=== PATIENT | male | born 1975 | race Two or more races ===

== ENCOUNTER → 2019-05-28 | Outpatient (CLI) | payer OTHER | LOC: CARD 11:12 | PROVIDERS: ATTEND Nurse Practitioner Family | DX: Z53.9 Procedure and treatment not carried out, unspecified reason (principal); R00.0 Tachycardia, unspecified; R00.2 Palpitations | CPT/HCPCS: 93225; 93226; 93306 ==

== ENCOUNTER → 2022-09-21 | Outpatient (CLI) | payer OTHER ==
--- NOTE | 2022-09-21 13:59 | Diagnostic Imaging Report ---
PROCEDURE: MR imaging cervical spine without contrast. TECHNIQUE: Multiplanar, multisequence MR imaging of the cervical spine was performed without contrast. INDICATION: Neck pain. COMPARISON: None. FINDINGS: Normal alignment. Vertebral body heights are preserved. No focal abnormal bone marrow signal. No abnormal signal in the cervical spinal cord. Visualized paravertebral soft tissues are unremarkable. C2-C3: No spinal canal or neural foraminal narrowing. C3-C4: Uncovertebral and facet arthropathy result in severe right and moderate left neural foraminal narrowing. C4-C5: Uncovertebral and facet arthropathy result in moderate bilateral neural foraminal narrowing. No spinal canal narrowing. C5-C6: Uncovertebral and facet arthropathy result in severe right and moderate left neural foraminal narrowing. No spinal canal narrowing. C6-C7: Left paracentral disc protrusion results in gxhd-tf-jmrqlatu spinal canal stenosis. Jrxu-ms-vppwnqmc bilateral neural foraminal narrowing. C7-T1: No spinal canal or neural foraminal narrowing. Moderate facet arthropathy. IMPRESSION: 1. Spondylotic changes result in no high-grade spinal canal stenosis. 2. Left paracentral disc protrusion at C6-C7 results in bitt-cc-opnsupyi spinal canal stenosis. 3. Multilevel high-grade neural foraminal narrowing as above. Dictated by: Dictated on workstation # [id number]
--- NOTE | 2022-09-21 14:33 | Diagnostic Imaging Report ---
PROCEDURE: MRI pelvis without contrast. TECHNIQUE: Multiplanar, multisequence MRI of the pelvis was performed without contrast. INDICATION: Pelvic pain. COMPARISON: None available. FINDINGS: Bones: No avascular necrosis of the femoral heads. There is no bone marrow edema to indicate stress reaction within the proximal femurs or pelvis. No sacroiliitis. No hip effusion either side. Articular cartilage throughout the right hip is fairly well-preserved. No para-labral cyst on the right side. Muscles and tendons: Bilateral distal iliopsoas tendons are intact. Proximal hamstring complexes are normal. Gluteus medius and minimus insertions are intact on both sides. No peritrochanteric fluid collection to suggest bursitis. Adductor muscles are normal. Piriformis muscles are symmetric. Other: No free pelvic fluid. No pelvic or inguinal lymphadenopathy. A very small fat-containing inguinal hernia is present on the left. IMPRESSION: No osseous or soft tissue abnormality to account for patient's right hip pain. Dictated by: Dictated on workstation # [id number]
--- NOTE | 2022-09-21 14:39 | Diagnostic Imaging Report ---
PROCEDURE: MRI lumbar spine. TECHNIQUE: Multiplanar, multisequence MRI of the lumbar spine was performed without contrast. INDICATION: Back pain. No priors. Lumbar statures normal. Their alignment is anatomic. The marrow signal intensity unremarkable. No marrow edema. The lower thoracic cord, conus and nerves of the cauda equina. Unremarkable no paravertebral mass, hemorrhage or fluid collection. Ligamentous structures intact. The pedicles and pars appeared intact. The T12-L1, the L1-L2, the L2-L3 and the L3-L4 levels and discs normal. No stenosis. L4-L5: There is mild thickening ligament flava facet arthrosis. There is some disc desiccation and right paramedian broad-based posterior disc protrusion, indenting the right ventral thecal sac results in mild spinal canal stenosis however moderate right lateral recess impingement and at least mild right greater than left foraminal stenoses. L5-S1: There is mild thickening of the flava and degenerative facet disease, additional slight desiccation and diffuse bulge but results in no significant canal stenosis. There is however moderate right and iptt-lz-mgrgomjg left foraminal narrowing. IMPRESSION: 1. Lower lumbar disc displacements and desiccation result in canal, foraminal and lateral recess stenoses as described at the L4-L5 and L5-S1 levels. 2. Normal alignment remaining levels normal, no acute bony pathology. Dictated by: Dictated on workstation # [id number]
== END ==
LOC: RAD 13:15
PROVIDERS: ATTEND Nurse Practitioner Family
DX: M54.89 Other dorsalgia (principal)
CPT/HCPCS: 72141; 72148; 72195

== ENCOUNTER 2022-10-13 05:41 | Outpatient (CLI) | payer OTHER ==
[~2022-10-13] VITALS: Ht 167.6 cm; Wt 122.6 kg
[2022-10-15] MEDS ORDERED: ATOR20TA66 PO (09:16)
[2022-10-15] MEDS ORDERED: AMLO-250 PO (09:16)
[2022-10-15] MEDS ORDERED: CETI10TA17 PO (09:16)
[2022-10-15] MEDS ORDERED: LOSA1TAB20 PO (09:16)
== END 2022-10-15 09:43 | disposition home or self-care (01) ==
LOC: PREOP 05:41
PROVIDERS: ATTEND Surgery
DX: Z01.818 Encounter for other preprocedural examination (principal)

== ENCOUNTER 2022-11-16 10:32 | Day surgery (SDC) | payer OTHER ==
[~2022-11-16] VITALS: Ht 167.6 cm; Wt 122.6 kg
[~2022-11-16 10:32] MED LIST: AMLO-250 PO; ATOR20TA66 PO; CETI10TA17 PO; LOSA1TAB20 PO
[2022-11-16] MEDS ORDERED: LACTATED RINGERS 1,000 ML IV STA (10:34)
[2022-11-16 11:14] VITALS: BP 161/115
[2022-11-16] MEDS ORDERED: fentaNYL INJ 100 MCG/2 ML AMP ONE (11:24)
[2022-11-16] MEDS ORDERED: PROPOFOL INJECTION 50 ML IV ONE (11:24)
--- NOTE | 2022-11-16 11:57 | Progress Note-Post Operative ---
Post-Operative Progess Note Surgeon (s)/Or Scrub Tech (s) Surgeon FAITH MASTERSON DO Or Scrub Tech: na Pre-Operative Diagnosis screening colonoscopy Post-Operative Diagnosis descending colon polyp, diverticulosis Procedure & Operative Findings Date of Procedure 11/16/22 Procedure Performed/Findings colonoscopy with snare polypectomy x1, ailyn ink injection Anesthesia Type per IS PROJECT MANAGER Estimated Blood Loss Estimated blood loss (mL): none Specimens/Packing Specimens Removed descending colon polyp FAITH MASTERSON DO November 16, 2022 11:57
--- NOTE | 2022-11-16 11:59 | Discharge Inst-Simple/Standard ---
Discharge Inst-Standard Patient Instructions/Follow Up Plan of Care/Instructions/FU: follow up with vahid in two weeks Activity as Tolerated: Yes Discharge Diet: Other Diet (high fiber) FAITH MASTERSON DO November 16, 2022 11:59
[2022-11-16 12:00] VITALS: BP 102/55
[2022-11-16 12:05] VITALS: BP 102/55
--- NOTE | 2022-11-16 12:08 | Anesthesia-General Post-Op ---
MAC Patient Condition Mental Status/LOC: Same as Preop Cardiovascular: Satisfactory Nausea/Vomiting: Absent Respiratory: Satisfactory Pain: Controlled Complications: Absent Post Op Complications Complications None Follow Up Care/Instructions Patient Instructions None needed. Anesthesiology Discharge Order Discharge Order Patient is doing well, no complaints, stable vital signs, no apparent adverse anesthesia problems. No complications reported per nursing. VIOLET LEONG CRNA November 16, 2022 12:08
[2022-11-16 12:30] VITALS: BP 142/85
[2022-11-16 12:40] VITALS: BP 142/85
--- NOTE | 2022-11-16 20:07 | OPERATIVE REPORT ---
DATE OF SERVICE: 11/16/2022 PREOPERATIVE DIAGNOSIS: Screening colonoscopy. POSTOPERATIVE DIAGNOSES: Descending colon polyp and diverticulosis. PROCEDURE: Colonoscopy with snare polypectomy x1 and Marcella inking. SURGEON: Faith Santos DO ANESTHESIA: Per TURBINE ASSEMBLER. ESTIMATED BLOOD LOSS: None. COMPLICATIONS: None. INDICATIONS: The patient is a 47-year-old male, needing screening colonoscopy. He understands risks and benefits of procedure and wished to proceed. Consent was signed in chart. DESCRIPTION OF PROCEDURE: The patient was taken to endoscopy suite, placed in the left lateral recumbent position. Timeout was performed. Digital rectal exam was performed. No palpable polyps, masses or ulcerations. Scope was inserted in the rectum and advanced all the way to the cecum with minimal difficulty. Prep was adequate with irrigation and suction. Scope was then slowly retracted back. No polyps, masses or ulcerations in the cecum, ascending, and transverse colon. In the descending colon, a large pedunculated polyp was present. Just distal to this area, a 1 mL of Marcella ink was used to tattoo this area and snare polypectomy was performed. Scope was used to retract this completely out and then scope was reinserted back to the point of its removal. Scope was then continuously retracted back. No polyps, masses or ulcerations into the descending and sigmoid colon. Once in the rectum, scope was retroflexed noting no other pathology. Throughout the colon, the patient had diverticulosis present. RECOMMENDATIONS: The patient will need repeat colonoscopy in one year to make sure the polyp has been eradicated. I would recommend high fiber diet due to diverticulosis. Any issues before that, be seen at that time. The patient will follow up in the office in 2 weeks to discuss pathology results. Job ID: [id number] DocumentID: [id number] Dictated Date: 11/16/2022 11:57:19 Drawer Hardware Worker Date: 11/16/2022 20:06:00 Dictated By: FAITH SANTOS DO
== END 2022-11-16 12:40 | disposition home or self-care (01) ==
LOC: ENDO 10:32
PROVIDERS: ATTEND Surgery
DX: Z12.11 Encounter for screening for malignant neoplasm of colon (principal); D12.4 Benign neoplasm of descending colon; K57.30 Diverticulosis of large intestine without perforation or abscess without bleeding; E66.9 Obesity, unspecified; Z87.891 Personal history of nicotine dependence; Z28.310 Unvaccinated for COVID-19; Z68.41 Body mass index [BMI] 40.0-44.9, adult
CPT/HCPCS: 88305

== ENCOUNTER 2022-12-20 19:16 | Emergency (ER) | payer OTHER ==
[~2022-12-20] VITALS: Ht 167.7 cm; Wt 117.9 kg
--- NOTE | 2022-12-20 19:41 | ED Back Pain ---
General Chief Complaint: Back Problems Stated Complaint: BACK PAIN Nursing Triage Note: PT AMB TO FT 2 W C/O LOWER BACK PAIN THAT RADIATES TO RIGHT HIP AND FOOT THAT'S PROGRESSIVELY GETTING WORSE SX JULY. PT A&OX4, DENIES TAKING ANYTHING FOR PAIN. Source of Information: Patient Exam Limitations: No Limitations History of Present Illness Date Seen by Provider: Dec 20, 2022 Time Seen by Provider: 19:35 Initial Comments Patient Is a 47-year-old male who presents the ED for lower back pain. Pain since July. This pain has progressively gotten worse. 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 Sitting in truck for long period time makes the pain worse or any sudden change of movement. States he had an MRI in September that showed it herniated disc. Patient states he has followed up with his primary care physician Dr. Ma. Provided exercises which he has been doing at home without much improvement. Over the past 3 weeks the pain has gotten worse with a sharp shooting pain down to the right foot described as iaya-uwh-excwmvx and burning sensation. Pain towards his inner hip as well. Patient denies of any bowel or urine incontinence, saddle paresthesia, lower extremity weakness. Denies taking thing at home for pain. Denies fever, chills, drug use, abdominal pain, vomiting, dysuria, dark urine Allergies and Home Medications Allergies Coded Allergies: No Known Drug Allergies (Unverified , 10/15/22) Patient Home Medication List Home Medication List Reviewed: Yes Amlodipine Besylate (Amlodipine Besylate) 5 Mg Tablet, 5 MG PO DAILY, (Reported) Entered as Reported by: TYRA ZAMORA on 10/15/22915 Atorvastatin Calcium (Atorvastatin Calcium) 20 Mg Tablet, 20 MG PO DAILY, ( Reported) Entered as Reported by: TYRA ZAMORA on 10/15/22915 Cetirizine HCl (Cetirizine HCl) 10 Mg Tablet, 10 MG PO DAILY, (Reported) Entered as Reported by: TYRA ZAMORA on 10/15/22915 Losartan/Hydrochlorothiazide (Losartan-Hctz 50-12.5 mg Tab) 50 Mg-12.5 Mg Tablet, 1 EACH PO DAILY, (Reported) Entered as Reported by: TYRA ZAMORA on 10/15/22915 Review of Systems Constitutional: No chills, No diaphoresis, No malaise, No weakness EENTM: No ear pain Respiratory: No cough, No dyspnea on exertion Cardiovascular: No chest pain Gastrointestinal: No abdominal pain, No diarrhea, No nausea, No vomiting Genitourinary: No decreased output, No discharge, No dysuria, No frequency, No incontinence Musculoskeletal: back pain, joint pain, joint swelling, muscle pain Skin: No change in color, No change in hair/nails All Other Systems Reviewed Negative Unless Noted: Yes Past Bxtjonr-Yjldau-Rhznvp Hx Patient Social History Tobacco Use?: No Use of E-Cig and/or Vaping dev: No Substance use?: No Alcohol Use?: No Immunizations Up To Date Influenza Vaccine Up-to-Date: No; Not Current First/Initial COVID19 Vaccinat: NO Second COVID19 Vaccination Bandar: NO Third COVID19 Vaccination Date: NO Seasonal Allergies Seasonal Allergies: No Past Medical History Surgeries: Yes (HERNIA/CARPAL R, ORAL) Abdominal, Orthopedic Respiratory: No Cardiac: Yes High Cholesterol, Hypertension Neurological: No Genitourinary: No Gastrointestinal: No Musculoskeletal: No Endocrine: No HEENT: No Cancer: No Psychosocial: No Integumentary: No Blood Disorders: No Physical Exam Vital Signs Vital Signs - First Documented 12/20/22 19:18 Temp 37.0 Pulse 108 Resp 20 B/P (MAP) 149/116 (127) Pulse Ox 96 O2 Delivery Room Air Capillary Refill : Less Than 3 Seconds Height, Weight, BMI Height: '" Weight: lbs. oz. kg; 41.00 BMI Method: General Appearance: No Apparent Distress, WD/WN HEENT: PERRL/EOMI, TMs Normal, Normal ENT Inspection, Pharynx Normal Neck: Full Range of Motion, Normal Inspection, Non Tender, Supple Cardiovascular: Regular Rate, Rhythm, No Edema, No Gallop, No JVD Respiratory: Chest Non Tender, Lungs Clear, Normal Breath Sounds, No Accessory Muscle Use, No Respiratory Distress Gastrointestinal: Normal Bowel Sounds, No Organomegaly, No Pulsatile Mass, Non Tender Back: Vertebral Tenderness (No more midline tenderness. Pain with flexion extension. No swelling or bruising.) Extremity: Normal Capillary Refill, Normal Inspection, Normal Range of Motion, Non Tender Neurologic/Psychiatric: Alert, Oriented x3, No Motor/Sensory Deficits, Normal Mood/Affect, medical director II-XII Norm as Tested Skin: Normal Color, Warm/Dry Progress/Results/Core Measures Results/Orders My Orders Orders - FARHEEN MENDEZ Ketorolac Injection (Toradol Injection) (12/20/22 19:45) Orphenadrine Inj (Ed Only) (Norflex Inje (12/20/22 19:45) Methylprednisolone Sod Succ (Solu-Medrol (12/20/22 19:45) Medications Given in ED Current Medications Medications Dose Ordered Sig/Nancy Route Start Time Stop Time Status Last Admin Dose Admin Ketorolac Tromethamine 30 mg ONCE ONCE IM 12/20/22 19:45 12/20/22 19:46 DC 12/20/22 19:44 30 MG Methylprednisolone Sodium Succinate 125 mg ONCE ONCE IM 12/20/22 19:45 12/20/22 19:46 DC 12/20/22 19:44 125 MG Orphenadrine Citrate 60 mg ONCE ONCE IM 12/20/22 19:45 12/20/22 19:46 DC 12/20/22 19:44 60 MG Vital Signs/I&O 12/20/22 19:18 Temp 37.0 Pulse 108 Resp 20 B/P (MAP) 149/116 (127) Pulse Ox 96 O2 Delivery Room Air Blood Pressure Mean: 127 Departure Communication (PCP) Reviewed previous ER visits, outpatient imaging. MRI in September showed Lower lumbar disc displacements and desiccation result incanal, foraminal and lateral recess stenoses as described at the L4-L5 and L5-S1 levels. Patient has no neur ological red flag findings but is starting having worsening pain in the lower back with sharp pain in the right hip with burning sensation and numbness into his right foot. No evidence of weakness. Denies taking thing at home for pain. No recent falls. Discussed results with patient. I do think patient would benefit with formal PT, epidural and neurosurgery follow-up. He has been doing home exercise without much improvement. Discussed taking some time off from work. Recommend follow-up with PCP for further evaluation. Would likely benefit with Toradol Norflex and Solu-Medrol injection that was performed here. Will discharge with few days worth of pain medication. Recommend anti- inflammatories. Provided other stretching. Provided neurosurgery outpatient follow-up. If any worsening symptoms return back to ED for further evaluation such as bowel or urine incontinence, saddle paresthesia, lower extremity weakness. Impression Primary Impression: Back pain Disposition: HOME, SELF-CARE Condition: Stable Departure-Patient Inst. Decision time for Depature: 20:21 Referrals: KAYA MA (PCP/Family) Primary Care Physician Patient Instructions: Low Back Pain (DC) Add. Discharge Instructions: Need to follow-up with her primary care physician discussed outpatient neurosurgery follow-up, pain specialist with epidurals, formal PT. Provided pain medication for the time being. Recommend rest, stretching. Return to ED if symptoms worsen or All discharge instructions reviewed with patient and/or family. Voiced understanding. Scripts Naproxen (Naproxen) 500 Mg Tablet 500 MG PO Q12H, #20 TAB Prov: FARHEEN MENDEZ 12/20/22 Hydrocodone/Acetaminophen (Hydrocodone-Acetamin 5-325 mg) 5 Mg-325 Mg Tablet 1 TAB PO Q4H PRN for PAIN-MODERATE (5-7), #8 TAB Prov: FARHEEN MENDEZ 12/20/22 Methocarbamol (Methocarbamol) 750 Mg Tablet 750 MG PO Q6-8HR for Back Pain, #20 TAB Prov: FARHEEN MENDEZ 12/20/22 Work/School Note: Work Release Form Date Seen in the Emergency Department: Dec 20, 2022 Return to Work: Dec 23, 2022 FARHEEN MENDEZ Dec 20, 2022 19:41
[2022-12-20] MEDS ORDERED: ORPHENADRINE 60 MG/2 ML (NORFLEX) AMP (ED ONLY) IM ONE (19:45)
[2022-12-20] MEDS ORDERED: KETOROLAC 30 MG/ML VIAL IM ONE (19:45)
[2022-12-20] MEDS ORDERED: methylPREDNISolone 125 MG (Solu-MEDROL) VIAL IM ONE (19:45)
[2022-12-20] MEDS ORDERED: ACHD5005 PO (20:24)
[2022-12-20] MEDS ORDERED: NAPR-915 PO (20:24)
[2022-12-20] MEDS ORDERED: METH-732 PO (20:24)
[2022-12-20 20:32] VITALS: BP 124/88
== END 2022-12-20 20:32 | disposition home or self-care (01) ==
LOC: EDUNIT# 19:16 → ER 19:18
DX: M54.50 Low back pain, unspecified (principal); Z87.39 Personal history of other diseases of the musculoskeletal system and connective tissue; Z28.310 Unvaccinated for COVID-19
CPT/HCPCS: 99284